=== PATIENT | female | born 1995 | race Caucasian/White ===

== ENCOUNTER 2022-10-19 08:36 | Emergency (ER) | payer OTHER, SELFPAY ==
[2022-10-19 08:59] VITALS: BP 147/107; PULSE 115; RESP 20; TEMP 36.9; O2SAT 98; BMI 38.4
[2022-10-19] MEDS: ondansetron HCL 4 MG/2 ML VIAL IVPUSH (10:16)
[2022-10-19] MEDS: Famotidine/PF 20 MG/2 ML VIAL IVPUSH (10:16)
[2022-10-19] MEDS: 0.9 % Sodium Chloride 1,000 ML 999 ML IV (10:16)
[2022-10-19 10:39] VITALS: BP 122/75; PULSE 76; RESP 18; TEMP 37.2; O2SAT 98
--- NOTE | 2022-10-19 11:10 | ED_ITS ---
HPI - Nausea/Vomiting/Diarrhea General Chief complaint: Nausea/Vomiting/Diarrhea Stated complaint: vomiting diarrhea Time Seen by Provider: 10/19/22 09:57 Source: patient Mode of arrival: ambulatory Limitations: no limitations History of Present Illness HPI Narrative: 26-year-old female presents with nausea, vomiting, diarrhea and intermittent constipation. Symptoms started about 1 week ago. Symptoms have been intermittent. They are moderate to severe. There is no clear relieving or exacerbating features. She has had this intermittently for several months. Her primary care did a barium follow-through but etiology unclear. Her primary care thought it might be related to a cannabis related hyperemesis. Patient tried abstinence for approximately 2 months with no relief. Patient denies any fevers or chills. She denies any significant abdominal pain. She does feel little bit aching generalized from the retching. She denies any blood in her stool or vomitus. Related Data Previous Rx's Medication Instructions Recorded dicyclomine 20 mg tablet 20 mg PO QID #30 tabs 10/19/22 omeprazole 40 mg capsule,delayed 40 mg PO DAILY #30 caps 10/19/22 release potassium chloride 20 mEq/15 mL 20 meq (15 mL) PO DAILY #450 mL 10/19/22 oral liquid prochlorperazine 25 mg rectal 25 mg MA Q12H PRN nausea and 10/19/22 suppository (Compazine) vomiting #12 ea Allergies Allergy/AdvReac Type Severity Reaction Status Date / Time No Known Allergies Allergy Unverified 01/22/20 19:52 [No Known Allergies*] none Allergy Unknown Uncoded 12/16/19 00:00 Review of Systems Review of Systems: CONSTITUTIONAL: Denies weight loss, fever and chills. HEENT: Denies changes in vision and hearing. RESPIRATORY: Denies SOB and cough. CV: Denies palpitations no CP. GI: See above/HPI : Denies dysuria and urinary frequency. MSK: Denies myalgia and joint pain. SKIN: Denies rash and pruritus. NEUROLOGICAL: Denies headache and syncope. PSYCHIATRIC: Denies recent changes in mood. Denies anxiety and depression. All other ROS are negative unless in HPI PMFSH Social History Social History Smoked in Last 30 Days: Yes Use of substances other than those prescribed or required for medical reasons: Yes Substance Use Type: Marijuana Substance Use Frequency: Daily Last Used Substance: Days (ago) Advance Directives: No Advance Directives Information Provided: Yes Physical Exam Vital Signs: Vital Signs: Last Vital Signs Temp 98.6 F 10/19/22 14:18 Pulse 76 10/19/22 14:18 Resp 14 10/19/22 14:18 BP 141/78 H 10/19/22 14:18 Pulse Ox 98 10/19/22 14:18 O2 Del Method Room Air 10/19/22 14:18 BMI result Body Mass Index 38.4 GEN: Well developed, no acute distress, alert, oriented HEENT: Normocephalic, atraumatic, normal external ears, nose appears normal, no oropharyngeal edema or exudates Eyes: Normal to appearance Neck: Supple, no lymphadenopathy Respiratory: Talks in complete sentences, no respiratory distress, clear to auscultation bilaterally Cardiovascular: Regular rate and rhythm, no murmurs rubs or gallops Abdomen: Soft, nontender, nondistended, no guarding, no rebound Back: No CVA tenderness Extremities: No clubbing cyanosis or edema Neurologic: No focal neurologic deficits, cranial nerves 2-12 intact, strength is 5/5 bilaterally Skin: No rash Course Course Course Narrative: Patient is feeling better at this time. She is p.o. challenging. I discussed all lab results with patient. Assuming patient able tolerate oral intake, will send home with antiemetics and dicyclomine with a referral to GI. Reevaluation(s) Reevaluation #1: Discussed results with patient. She is having some belching episodes. She is mildly nauseous. We discussed medical management, consultation with Gastroenterology. Time: 13:45 Reevaluation #2: Patient is feeling better, tolerate oral intake, patient will be discharged at this time. Time: 14:28 Medications Administered Discontinued Medications Generic Name Dose Route Start Last Admin Trade Name Freq PRN Reason Stop Dose Admin Famotidine 20 mg 10/19/22 09:59 10/19/22 10:16 Famotidine/Pf 20 Mg/2 Ml Vial IVPUSH 10/19/22 10:00 20 mg ONCE ONE Administration Sodium Chloride 1,000 mls @ 999 mls/hr 10/19/22 10:00 10/19/22 11:29 Ns IV 10/19/22 11:00 Infused .Q1H1M ENE Infusion Promethazine HCl 12.5 mg/ 50.5 mls @ 202 mls/hr 10/19/22 13:44 10/19/22 13:52 Sodium Chloride IV 10/19/22 13:45 202 mls/hr ONCE ONE Administration Ondansetron HCl 4 mg 10/19/22 09:59 10/19/22 10:16 Ondansetron Hcl 4 Mg/2 Ml Vial IVPUSH 10/19/22 10:00 4 mg ONCE ONE Administration Potassium Chloride 40 meq 10/19/22 13:37 10/19/22 13:46 Potassium Chloride Packet 20 Meq Packet PO 10/19/22 13:38 40 meq ONCE ONE Administration Medical Decision Making Medical Decision Making [facility] Narrative: Patient presents with nausea, vomiting, diarrhea and constipation. Differential diagnosis includes IBS, IBD, dysmotility, bacterial overgrowth. Plan will be to check routine laboratory analysis for electrolyte abnormality or evidence of acute gastroenteritis. Will treat symptomatically in the meantime including IV fluids, antiemetics, analgesics. I suspect patient will likely be able to be discharged home pending clinical improvement. However, should she remain unable to tolerate oral intake, patient will need to be admitted. Differential Diagnosis Differential Diagnoses: The differential diagnosis associated with the presentation includes (See above) Lab Data [facility] Lab Attestation statement: I reviewed the patient's lab results. 10/19/22 11:33 10/19/22 11:33 Labs: Lab Results 10/19/22 10/19/22 Range/Units 11:33 11:33 WBC 19.0 H (4.8-10.8) X10*3/uL RBC 4.57 (4.20-5.50) X10*6/uL Hgb 14.0 (12.0-16.0) g/dl Hct 39.6 (37.0-47.0) % MCV 86.7 (80.0-98.0) fL MCH 30.6 (27.0-33.0) pg MCHC 35.4 H (31.0-35.0) g/dl RDW 12.1 (11.0-16.0) % Plt Count 426 H (160-400) X10*3/uL MPV 10.0 (9.4-12.3) fL Immature Gran % (Auto) 0.4 (0.0-0.4) % Neut % (Auto) 86.3 H (45-73) % Lymph % (Auto) 7.2 L (20-40) % White % (Auto) 5.9 (2-11) % Eos % (Auto) 0.0 (0-4) % Baso % (Auto) 0.2 (0-2) % Lymph # (Auto) 1.4 (1.2-4.9) X10*3/uL White # (Auto) 1.1 (0.1-1.2) X10*3/uL Eos # (Auto) 0.0 (0.0-0.4) X10*3/uL Baso # (Auto) 0.0 (0.0-0.2) X10*3/uL Abs Immat Gran (auto) 0.08 H (0.00-0.03) X10*3/uL Absolute Neuts (auto) 16.4 H (2.0-8.3) x10*3/uL Absolute Nucleated RBC 0.000 (0.0-0.012) X10*3/uL Nucleated RBC % (auto) 0.0 (0.0-0.2) /100WBC Sodium 138 (135-145) mmol/L Potassium 2.8 L (3.3-5.1) mmol/L Chloride 103 (96-108) mmol/L Carbon Dioxide 21 L (22-29) mmol/L Anion Gap 17 (12-20) BUN 10 (9-16) mg/dL Creatinine 0.75 (0.5-1.4) mg/dL Estim Creat Clear Calc 157.3 Estimated GFR > 60 Random Glucose 102 (60-115) mg/dL Calcium 8.8 (8.4-10.2) mg/dL Prescription Management I considered prescription management with: Pain Medication Discharge Plan Discharge Clinical Impression: Nausea vomiting and diarrhea Patient Disposition: Home, Self-Care Instructions: Gluten-Free Diet (ED), Hypokalemia (ED), Cyclic Vomiting Syndrome (ED) Additional Instructions: Recommending the following treatment Probiotic daily of your choice, lactobacillus acidophilus would be appropriate Zofran 4 mg ODT every 8 hours as needed for nausea sublingually Compazine suppository 25 mg every 12 hours as needed for nausea vomiting Omeprazole 40 mg daily Fiber supplementation Gas-X or simethicone which is available [id number] You should follow-up with Gastroenterology. Prescriptions: New dicyclomine 20 mg tablet 20 mg PO QID Qty: 30 0RF Rx Instructions: Take 30 minutes before eating and 30 minutes before bed omeprazole 40 mg capsule,delayed release(DR/EC) 40 mg PO DAILY Qty: 30 0RF prochlorperazine [Compazine] 25 mg suppository 25 mg MA Q12H PRN (Reason: nausea and vomiting) Qty: 12 0RF potassium chloride 20 mEq/15 mL liquid 20 meq PO DAILY Qty: 450 0RF Referrals: Bonita Ramirez MD [Physician] - 1 week
[2022-10-19 11:36] LABS: MANUAL DIFF FLAG NO
[2022-10-19 11:41] LABS: Basophils Percent Auto 0.2 % (0-2); Hematocrit 39.6 % (37.0-47.0); Imm Gran Abs Auto 0.08 X10*3/uL (0.00-0.03); Imm Gran Pct Auto 0.4 % (0.0-0.4); Lymphocytes Absolute Auto 1.4 X10*3/uL (1.2-4.9); Lymphocytes Percent Auto 7.2 % (20-40); Mean Corpuscular HGB Conc 35.4 g/dl (31.0-35.0); Mean Corpuscular Hemoglobin 30.6 pg (27.0-33.0); Mean Corpuscular Volume 86.7 fL (80.0-98.0); Monocytes Absolute Auto 1.1 X10*3/uL (0.1-1.2); Monocytes Percent Auto 5.9 % (2-11); Neutrophils Absolute Auto 16.4 x10*3/uL (2.0-8.3); Neutrophils Percent Auto 86.3 % (45-73); Platelet Count 426 X10*3/uL (160-400); Red Blood Count 4.57 X10*6/uL (4.20-5.50); Red Cell Distribution Width 12.1 % (11.0-16.0)
[2022-10-19 12:02] LABS: Anion Gap 17 (12-20); Blood Urea Nitrogen 10 mg/dL (9-16); Calcium 8.8 mg/dL (8.4-10.2); Carbon Dioxide 21 mmol/L (22-29); Chloride 103 mmol/L (96-108); Creatinine Clr Calc Pharmacy 157.3; Estimated Glomerular Filt Rate > 60; Glucose Random 102 mg/dL (60-115); Potassium 2.8 mmol/L (3.3-5.1); Sodium 138 mmol/L (135-145)
[2022-10-19 13:00] VITALS: BP 145/62; PULSE 84; RESP 18; TEMP 37.1; O2SAT 99
[2022-10-19] MEDS: Potassium Chloride Packet 20 MEQ PACKET 40 MEQ PO (13:46)
[2022-10-19 14:18] VITALS: BP 141/78; PULSE 76; RESP 14; TEMP 37; O2SAT 98
[2022-10-19 14:40] VITALS: BP 128/81; PULSE 80; RESP 16; TEMP 37.1; O2SAT 99
== END 2022-10-19 14:45 | disposition home or self-care (01) ==
PROVIDERS: Emergency Provider Emergency Medicine
DX: R11.2 Nausea with vomiting, unspecified (principal); R19.7 Diarrhea, unspecified; Z79.899 Other long term (current) drug therapy
CPT/HCPCS: 36415; 80048; 85025; 96361; 96365; 96375; 99284; J2405; J2550

== ENCOUNTER 2022-10-26 11:11 | Outpatient (REF) | payer OTHER, SELFPAY ==
[2022-10-26 12:53] LABS: Basophils Absolute Auto 0.1 X10*3/uL (0.0-0.2); Basophils Percent Auto 0.4 % (0-2); Eosinophils Absolute Auto 0.1 X10*3/uL (0.0-0.4); Eosinophils Percent Auto 0.5 % (0-4); Hematocrit 41.5 % (37.0-47.0); Hemoglobin 14.8 g/dl (12.0-16.0); Imm Gran Abs Auto 0.25 X10*3/uL (0.00-0.03); Imm Gran Pct Auto 1.1 % (0.0-0.4); Lymphocytes Absolute Auto 3.1 X10*3/uL (1.2-4.9); Lymphocytes Percent Auto 13.8 % (20-40); MANUAL DIFF FLAG SCAN; Mean Corpuscular HGB Conc 35.7 g/dl (31.0-35.0); Mean Corpuscular Hemoglobin 31.1 pg (27.0-33.0); Mean Corpuscular Volume 87.2 fL (80.0-98.0); Mean Platelet Volume 10.4 fL (9.4-12.3); Monocytes Absolute Auto 1.6 X10*3/uL (0.1-1.2); Monocytes Percent Auto 7.2 % (2-11); Neutrophils Absolute Auto 17.1 x10*3/uL (2.0-8.3); Platelet Count 491 X10*3/uL (160-400); Red Blood Count 4.76 X10*6/uL (4.20-5.50); Red Cell Distribution Width 12.4 % (11.0-16.0); SCAN SMEAR FLAG 1; White Blood Count 22.2 X10*3/uL (4.8-10.8)
[2022-10-26 13:15] LABS: SLIDE REVIEW VERIFIED
[2022-10-26 13:18] LABS: Appearance Urine Cloudy; Color Urine Dark Yellow; Glucose Urine UA Negative (Negative); Leukocyte Esterase Urine Small (1+) (Negative); Nitrite Urine Negative (Negative); Specific Gravity - Urine >= 1.030 (1.005-1.025); UMIC TRIGGER UA YES; Urine Blood Moderate (2+) (Negative); Urine Ketones Trace mg/dL (Negative); Urine Protein 30 (1+) mg/dL (Neg-Trace)
[2022-10-26 13:30] LABS: Bacteria Urine 3+ (None Seen); RBC Urine 0-2 /HPF (0-2); Squamous Epithelial Cell Urine >20 /HPF (0-2); WBC Urine 21-50 /HPF (0-5)
[2022-10-26 13:34] LABS: Erythrocyte Sedimentation Rate 10 MM/HR (0-20)
[2022-10-26 13:35] LABS: HCG Quantitative < 2 mIU/mL
[2022-10-26 14:07] LABS: C Reactive Protein 0.34 mg/dL (< or = 0.50); Thyroid Stimulating Hormone 0.64 uIU/mL (0.32-4.0)
[2022-11-03 13:28] LABS: Transglutaminase IgA <1.0 U/mL
== END 2022-10-26 11:12 | disposition home or self-care (01) ==
LOC: HO.LAB 11:11
PROVIDERS: Visit Provider Physician Assistant
DX: K52.9 Noninfective gastroenteritis and colitis, unspecified (principal); K59.00 Constipation, unspecified; D72.829 Elevated white blood cell count, unspecified; R11.2 Nausea with vomiting, unspecified; R19.8 Other specified symptoms and signs involving the digestive system and abdomen; R10.9 Unspecified abdominal pain; Z79.899 Other long term (current) drug therapy
CPT/HCPCS: 36415; 81001; 84443; 84702; 85025; 85652; 86140; 86364